=== PATIENT | female | born 1955 | race Caucasian/White ===

== ENCOUNTER 2020-05-07 14:10 | Outpatient (CLI) | payer MEDICARE, BC, SELFPAY ==
--- NOTE | 2020-05-07 14:24 | MM_ITS ---
WS: [id number] BILATERAL DIGITAL SCREENING MAMMOGRAPHY WITH CAD CLINICAL INFORMATION: SCREENING HISTORY: Screening mammogram. No current complaints. COMPARISON: April 17, 2019 TECHNIQUE: Bilateral CC and MLO views. FINDINGS: Bilateral breast implants Scattered fibroglandular densities bilaterally. No suspicious focal mass, asymmetry, calcifications, or architectural distortion. No evidence of malignancy. MM/[place] [id number] IMPRESSION: BI-RADS: 2-Benign FOLLOW UP: 1 Year Follow-up Recommend return to annual screening mammography.
--- NOTE | 2020-05-07 14:58 | XR_ITS ---
WS: [id number] Bone mineral density performed on a Elevate HR, 05/07/2020 Clinical data: POST MENOPAUSAL Findings: The first 4 lumbar vertebral bodies demonstrated the bone mineral density of 1.104 g/cm2 for a young adult T score of -0.6. Measurement of the left hip reveals a bone mineral density of 0.779 g/cm2 with a young adult T score of -1.8. Measurement of the right hip reveals the bone mineral density of 0.766 g/cm2 for young adult T score of -1.9. XR/XR DEXA axial skeleton* [id number] Impression: 1. Normal bone mineral density of the lumbar spine. 2. Osteopenia of both hips.
== END 2020-05-07 14:11 | disposition home or self-care (01) ==
PROVIDERS: PCP Family Medicine; Visit Provider Family Medicine
DX: Z12.31 Encounter for screening mammogram for malignant neoplasm of breast (principal); Z78.0 Asymptomatic menopausal state; M85.88 Other specified disorders of bone density and structure, other site
CPT/HCPCS: 77067; 77080

== ENCOUNTER 2021-10-09 18:18 | Emergency (ER) | payer MEDICARE, BC, SELFPAY ==
[2021-10-09 19:20] VITALS: BP 126/83; PULSE 67; RESP 18; TEMP 36.2; O2SAT 96; BMI 23.5
--- NOTE | 2021-10-09 21:21 | ED_ITS ---
HPI - General Adult General: Chief complaint: Eye Problems Stated complaint: [place] Vision\Jaws Hurt Time Seen by Provider: 10/09/21 20:52 History of Present Illness: HPI narrative: Patient is a 66-year-old female comes to the ED with an episode of vision change and headache. Symptoms started while she was sitting watching some TV. Symptoms lasted for approximately 15 minutes and resolved before coming to the ED. she describes the vision change as seen some bright halo type rings around objects. When the vision symptoms started they were in both eyes right away and then as the vision symptoms went away at first resolved on right eye and then the left. Headache at the time was described as very mild. She currently has no headache here in the ED. Denies any neurological symptoms such as numbness/tingling to face, extremities. Denies any weakness to 1 side of her body. Patient denies any other symptoms. She does not have any history of past strokes. Associated symptoms: Reports headache(s) (Mild headache resolved upon arrival to ED); Deny chest pain, dyspnea, nausea, rash, palpitations or vomiting Review of Systems Const: Denies: fever(s), chills or fatigue Eyes: Reports: change in vision (Bilateral-resolved upon arrival to the ED.); Denies: eye discomfort ENMT: Denies: throat pain, odynophagia, nasal discharge or nasal congestion Card: Denies: chest pain, palpitations, edema, swelling of feet/ankles, dyspnea on exertion or orthopnea Resp: Denies: dyspnea, productive cough or non-productive cough GI: Denies: abdominal pain, nausea, vomiting, diarrhea, constipation or hematochezia : Denies: flank pain, dysuria or hematuria Musc: Denies: neck pain, back pain or extremity swelling Skin/Breast: Denies: rash or new lesions Neuro: Reports: headache(s) (Mild headache resolved upon arrival to ED); Denies: numbness in extremities or weakness in extremities PFS ED PFSH: Medical History Anxiety Arrhythmia Premature ventricular contractions History of nonmelanoma skin cancer 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) Surgical History S/P right breast implant Family History Father Brain malignant neoplasm Palpitations Family/Other Cancer Social History Smoking and tobacco status: former smoker Alcohol intake: current Alcohol intake frequency: holidays/special occasions only Alcohol type: wine Lives independently: Yes Marital status: / service: No Current occupational status: employed Current occupation: [employer] Current gender identity: Female Sophia/Congregation: Other Physical Exam Const: COMMON NORMALS: no acute distress, patient oriented x3, healthy appearing and alert GENERAL APPEARANCE: cooperative and comfortable HENMT: COMMON NORMALS: normocephalic HEAD & SCALP: normocephalic MOUTH: Normal oral and palatal mucosa present THROAT: posterior oropharynx normal and uvula midline Eye: COMMON NORMALS: Equal, round and reactive pupils present, EOMs intact bilaterally, conjunctivae normal and normal visual kirk by confrontation CONJUNCTIVA: Yes conjunctivae normal PUPIL: Yes Equal, round and reactive pupils present Neck/C-Spine: COMMON NORMALS: supple GENERAL: Yes normal visual inspection Resp: COMMON NORMALS: normal respiratory effort, No retractions, No use of accessory muscles and clear to auscultation bilaterally AUSCULTATION: clear to auscultation bilaterally Cardio: COMMON NORMALS: regular rate, regular rhythm, S1 normal heart sound present, S2 normal heart sound present, No gallops present (Cardio), No clicks present (Cardio), No murmurs present (Cardio) and Peripheral pulses 2+ throughout RATE: regular rate RHYTHM: regular rhythm HEART SOUNDS: S1 normal heart sound present and S2 normal heart sound present PERIPHERAL PULSES: Peripheral pulses 2+ throughout GI: COMMON NORMALS: Normal to inspection, nondistended, normoactive bowel sounds present, Soft to palpation, non-tender and no masses PALPATION: Yes Soft to palpation : COMMON NORMALS: Yes no CVA tenderness BLADDER/KIDNEY EXAM: Yes no CVA tenderness Back/Pelvis: COMMON NORMALS: no CVA tenderness Extremity: COMMON NORMALS: normal to inspection and full ROM Neuro: COMMON NORMALS: patient oriented x3, CN's II-XII intact bilaterally, moves all extremities, no focal motor deficits and no sensory deficits noted SENSORIUM/ORIENTATION: Yes alert SENSORY EXAM: Yes extremities (intact) MOTOR EXAM: 5/5 motor strength present throughout Skin: GENERAL SKIN EXAM: dry skin Course Vital Signs: Vital signs: Vital Signs Temperature 97.2 F L 10/09/21 19:20 Pulse Rate 67 10/09/21 19:20 Respiratory Rate 18 10/09/21 22:56 Blood Pressure 126/83 10/09/21 19:20 Pulse Oximetry 96 10/09/21 19:20 MDM - General Adult MDM Narrative: Medical decision making narrative: Patient is a 66-year-old female comes to the ED with an episode of vision change and headache. Symptoms started while she was sitting watching some TV. Symptoms lasted for approximately 15 minutes and resolved before coming to the ED. she describes the vision change as seen some bright halo type rings around objects. Symptoms were completely resolved upon arrival to the ED. She was experiencing no symptoms here in the ED and felt at her normal baseline. Vitals are stable. Neuro exam showed no deficits and the rest of exam was benign. CT of head showed no acute findings. Patient was diagnosed with an episode of visual disturbance and discharged home. She was told to follow-up with her PCP in 7 to 10 days reevaluation. Return to ED precautions given. Patient was to agree with plan. Imaging Data^: CT Head: Attestation: I personally reviewed and interpreted this imaging study as follows: Radiologist's impression: [address] [address] [address] Scan Report Signed Patient: Dafne Alex Unit #: [id number] : 1955 Age/Sex: 66 / F ADM Date: 10/09/21 Loc: ER Room/Bed: Attending Dr: Ordering Provider/Ordering MD: Magnus Courtney Date of Service: 10/09/21 Procedure(s): CT head wo con* [id number] Accession Number(s): [id number] Report Number: [id number] PROCEDURE INFORMATION: Exam: CT Head Without Contrast Exam date and time: 10/09/2021 9:20 PM Age: 66 years old Clinical indication: Pain; Visual disturbance; Headache; Additional info: Episode of vision changes with headache TECHNIQUE: Imaging protocol: Computed tomography of the head without contrast. Radiation optimization: All CT scans at this facility use at least one of these dose optimization techniques: automated exposure control; mA and/or kV adjustment per patient size (includes targeted exams where dose is matched to clinical indication); or iterative reconstruction. COMPARISON: No relevant prior studies available. RADIATION DOSE METRICS: Total DLP (mGy-cm): 809.01 FINDINGS: Brain: Normal. No hemorrhage. Unremarkable white matter. No mass effect. Cerebral ventricles: No ventriculomegaly. Paranasal sinuses: Visualized sinuses are unremarkable. No fluid levels. Mastoid air cells: Visualized mastoid air cells are well aerated. Bones/joints: Unremarkable. No acute fracture. Soft tissues: Unremarkable. CT/CT head wo con* [id number] IMPRESSION: No acute intracranial abnormality. Dictated By: Massimo You DO Signed By: Massimo You DO Signed Date/Time: 10/09/212221 DD/ 19 Discharge Plan Discharge Patient Disposition: Home Clinical Impression: Episode of visual disturbance Condition: Stable Prescriptions: No Action No Known Home Medications RF: 0 Discharge Orders: Discharge ED (Routine); Ordered 10/09/21 Ordered By: Magnus Courtney Referrals: Will Eisenberg MD [Primary Care Provider] - Discharge Diet: Regular Discharge Activity: Resume usual activity Activity Restrictions/Additional Instructions: Follow-up with medical provider as directed in 7 to 10 days for reevaluation. Continue taking all home medications as previously prescribed. Return to the ER or your medical provider if condition worsens. Please read and understand discharge instructions. Thank you for choosing [facility] for your healthcare needs today. Please realize this is an emergency room and that we are providing you with a medical screening exam and this may not be complete and all inclusive of all the testing and or work up that you may need to determine your ailment or severity of your illness. It is very important that you follow up as instructed or that you return to the Emergency Department should you have concerns or if your condition changes or worsens in any way. Coding Level of Care Code ED [employer] for [employer] Exam Comprehensive
[2021-10-09 22:56] VITALS: RESP 18
== END 2021-10-09 22:58 | disposition home or self-care (01) ==
PROVIDERS: Emergency Provider Physician Assistant; PCP Family Medicine
DX: H53.9 Unspecified visual disturbance (principal); Z87.891 Personal history of nicotine dependence
CPT/HCPCS: 70450; 99283

== ENCOUNTER 2022-08-25 13:09 | Outpatient (CLI) | payer MEDICARE, BC, SELFPAY ==
--- NOTE | 2022-08-25 13:19 | MM_ITS ---
WS: [id number] BILATERAL 3D TOMOSYNTHESIS DIGITAL SCREENING MAMMOGRAPHY WITH CAD CLINICAL INFORMATION: SCREENING HISTORY: Screening mammogram. No current complaints. COMPARISON: May 07, 2020 TECHNIQUE: Bilateral CC and MLO views. FINDINGS: Bilateral breast implants revision since 2019. Scattered fibroglandular densities bilaterally. No suspicious focal mass, asymmetry, calcifications, or architectural distortion. No evidence of malignancy. A few incidental punctate calcifications. MM/[place] [id number] IMPRESSION: BI-RADS: 2-Benign FOLLOW UP: 1 Year Follow-up Recommend return to annual screening mammography.
== END 2022-08-25 13:10 | disposition home or self-care (01) ==
LOC: RAD 13:10
PROVIDERS: PCP Family Medicine; Visit Provider Family Medicine
DX: Z12.31 Encounter for screening mammogram for malignant neoplasm of breast (principal)
CPT/HCPCS: 77063; 77067

== ENCOUNTER → 2023-05-28 13:51 | Outpatient (BNVA) | payer MEDICARE, BC, SELFPAY | PROVIDERS: PCP Family Medicine; Visit Provider Dermatology | DX: L28.1 Prurigo nodularis (principal); L57.8 Other skin changes due to chronic exposure to nonionizing radiation; L81.4 Other melanin hyperpigmentation; D18.01 Hemangioma of skin and subcutaneous tissue; Z85.828 Personal history of other malignant neoplasm of skin; Z87.891 Personal history of nicotine dependence | CPT/HCPCS: 99213 ==

== ENCOUNTER 2023-12-13 13:25 | Outpatient (CLI) | payer MEDICARE, BC, SELFPAY ==
--- NOTE | 2023-12-13 13:30 | MM_ITS ---
WS: [id number] BILATERAL SCREENING DIGITAL BREAST MAMMOGRAPHY WITH SHANIQUE DISPLACEMENT VIEWS. CAD PERFORMED. HISTORY: SCREENING COMPARISON: 08/25/2022, 05/07/2020 Bilateral craniocaudal and mediolateral oblique views are performed with tomosynthesis and SM. Shanique displacement views in CC and MLO projection also performed. Breasts composition: There are scattered areas of fibroglandular density. Implants are intact. Small lymph nodes in the upper outer quadrant LEFT breast. No suspicious mass or calcification. IMPRESSION: MM/[place] [id number] BI-RADS: 2-Benign FOLLOW-UP: 1 Year Follow-up
== END 2023-12-13 13:26 | disposition home or self-care (01) ==
LOC: RAD 13:26
PROVIDERS: PCP Family Medicine; Visit Provider Nurse Practitioner Family
DX: Z12.31 Encounter for screening mammogram for malignant neoplasm of breast (principal); R92.323 Mammographic fibroglandular density, bilateral breasts
CPT/HCPCS: 17000; 77063; 77067; 99213

== ENCOUNTER → 2024-06-12 14:24 | Outpatient (BNVA) | payer MEDICARE, BC, SELFPAY | PROVIDERS: PCP Family Medicine; Visit Provider Nurse Practitioner Family | DX: L72.0 Epidermal cyst (principal); Q83.8 Other congenital malformations of breast; L82.1 Other seborrheic keratosis; D18.01 Hemangioma of skin and subcutaneous tissue | CPT/HCPCS: 17000; 99213 ==

== ENCOUNTER 2024-07-15 10:52 | Outpatient (CLI) | payer MEDICARE, BC, SELFPAY ==
--- NOTE | 2024-07-15 10:57 | XRR_ITS ---
PROCEDURE INFORMATION: Exam: XR Left Hand Exam date and time: 07/15/2024 11:15 AM Age: 68 years old Clinical indication: Pain; Bilateral; Patient HX: Fall onto hands x2 years, started bothering patient about a year ago, knots on hand; Additional info: R hand pain TECHNIQUE: Imaging protocol: Radiologic exam of the left hand. Views: 3 or more views. COMPARISON: No relevant prior studies available. FINDINGS: Bones/joints: Normal. Soft tissues: Normal. XR/XR hand LT min 3V* [id number] IMPRESSION: No acute findings.
--- NOTE | 2024-07-15 10:57 | XRR_ITS ---
PROCEDURE INFORMATION: Exam: XR Right Hand Exam date and time: 07/15/2024 11:15 AM Age: 68 years old Clinical indication: Pain; Bilateral; Patient HX: Fall onto hands x2 years, started bothering patient about a year ago, knots on hand; Additional info: R hand pain TECHNIQUE: Imaging protocol: Radiologic exam of the right hand. Views: 3 or more views. COMPARISON: No relevant prior studies available. FINDINGS: Bones/joints: Normal. Soft tissues: Normal. XR/XR hand RT min 3V* [id number] IMPRESSION: No acute findings.
== END 2024-07-15 10:53 | disposition home or self-care (01) ==
LOC: RAD 10:53
PROVIDERS: PCP Family Medicine; Visit Provider Nurse Practitioner Family
DX: M79.641 Pain in right hand (principal)
CPT/HCPCS: 73130

== ENCOUNTER 2024-08-21 09:50 | Outpatient (CLI) | payer MEDICARE, BC, SELFPAY ==
--- NOTE | 2024-08-21 09:54 | US_ITS ---
WS: [id number] ULTRASOUND BREAST LEFT TECHNIQUE: Ultrasound left breast focused area of concern. CLINICAL INFORMATION: L BREAST PAIN/IMPLANTS TENDER @ 8 OCLOCK AREA LEFT COMPARISON: None. FINDINGS: Ultrasound LEFT breast 8 o'clock position area of pain 2 cm from the nipple. In the area of concern, there is a small echogenic lesion measuring 3 x 3 x 3 mm which has a benign appearance most likely a small lipoma or fibroadenolipoma. Recommend 6-month follow-up to confirm stability considering palpab le nature. US/US breast LT limited* [id number] IMPRESSION: BI-RADS 3 probably benign Recommend 6-month ultrasound LEFT breast follow-up to confirm stability.
== END 2024-08-21 09:51 | disposition home or self-care (01) ==
LOC: RAD 09:51
PROVIDERS: PCP Family Medicine; Visit Provider Nurse Practitioner Family
DX: N63.24 Unspecified lump in the left breast, lower inner quadrant (principal); N64.4 Mastodynia
CPT/HCPCS: 76642

== ENCOUNTER 2024-10-28 13:22 | Outpatient (CLI) | payer MEDICARE, BC, SELFPAY ==
--- NOTE | 2024-10-28 13:25 | USR_ITS ---
PROCEDURE INFORMATION: Exam: US Pelvis Transabdominal, Complete, and US Pelvis Transvaginal, Non-obstetric Exam date and time: 10/28/2024 1:56 PM Age: 69 years old Clinical indication: Pelvic pain TECHNIQUE: Imaging protocol: Real-time complete transabdominal and transvaginal pelvic ultrasound (non-obstetric) with image documentation. Transvaginal imaging was used for better evaluation of the endometrium, adnexa, and/or cervix. COMPARISON: No relevant prior studies available. FINDINGS: Uterus: The uterus is anteverted. Uterine contours are normal. The endometrium is homogenous. Endometrial stripe thickness measures 4 mm. The uterus measures 4.4 x 2.3 x 1.7 cm for a volume of 9 cc. Right ovary/adnexa: The right ovary is not visible. There is no adnexal mass or cyst on the right. Left ovary/adnexa: The left ovary is not visible. There is no adnexal mass or cyst on the left. Intraperitoneal space: No pelvic free fluid. Urinary bladder: The urinary bladder is unremarkable. US/US pelv w/transvag [id number] IMPRESSION: 1. Unremarkable uterus. 2. Ovaries are not visible.
== END 2024-10-28 13:23 | disposition home or self-care (01) ==
LOC: RAD 13:23
PROVIDERS: PCP Family Medicine; Visit Provider Nurse Practitioner Family
DX: R10.2 Pelvic and perineal pain (principal)
CPT/HCPCS: 76830; 76856

== ENCOUNTER 2024-12-16 11:30 | Outpatient (CLI) | payer MEDICARE, BC, SELFPAY ==
--- NOTE | 2024-12-16 | MM_ITS ---
WS: [id number] BILATERAL 3D TOMOSYNTHESIS DIGITAL SCREENING MAMMOGRAPHY WITH CAD CLINICAL INFORMATION: ANNUAL SCREENING HISTORY: Screening mammogram. No current complaints. COMPARISON: 2023 TECHNIQUE: Bilateral CC and MLO views. FINDINGS: Stable bilateral breast implants. Scattered fibroglandular densities bilaterally. No suspicious focal mass, asymmetry, calcifications, or architectural distortion. No evidence of malignancy. MM/MM [facility] tomosynthesis [id number] IMPRESSION: DENSITY: There are scattered areas of fibroglandular density. BI-RADS: 2 - Benign. FOLLOW UP: 1 Year Follow-up Recommend return to annual screening mammography.
== END 2024-12-16 11:31 | disposition home or self-care (01) ==
PROVIDERS: PCP Family Medicine; Visit Provider Nurse Practitioner Family
DX: L91.8 Other hypertrophic disorders of the skin (principal); L82.1 Other seborrheic keratosis; D18.01 Hemangioma of skin and subcutaneous tissue; Z08 Encounter for follow-up examination after completed treatment for malignant neoplasm; Z85.828 Personal history of other malignant neoplasm of skin; L57.0 Actinic keratosis
CPT/HCPCS: 17000; 77063; 77067; 99213

== ENCOUNTER → 2025-05-28 09:58 | Outpatient (BNVA) | payer MEDICARE, BC, SELFPAY | PROVIDERS: PCP Family Medicine; Visit Provider Nurse Practitioner Family | DX: D18.01 Hemangioma of skin and subcutaneous tissue (principal); L57.8 Other skin changes due to chronic exposure to nonionizing radiation; X32.XXXA Exposure to sunlight, initial encounter; L57.0 Actinic keratosis; L81.4 Other melanin hyperpigmentation; Z08 Encounter for follow-up examination after completed treatment for malignant neoplasm; Z85.828 Personal history of other malignant neoplasm of skin | CPT/HCPCS: 17000; 99213 ==

== ENCOUNTER → 2025-06-23 11:23 | Outpatient (BNVA) | payer MEDICARE, BC, SELFPAY | PROVIDERS: PCP Family Medicine; Visit Provider Podiatrist Foot & Ankle Surgery | DX: M79.671 Pain in right foot (principal); M72.2 Plantar fascial fibromatosis | CPT/HCPCS: 73630; 99203 ==

== ENCOUNTER 2025-07-10 10:19 | Emergency (ER) | payer MEDICARE, BC, SELFPAY ==
[2025-07-10 10:37] VITALS: BP 106/69; PULSE 77; RESP 17; TEMP 36.8; O2SAT 99; BMI 25.1
--- NOTE | 2025-07-10 11:29 | XR_ITS ---
WS: [id number] XR hand RT min 3V* [id number] REASON FOR EXAM: fall FINDINGS: No acute fracture. Joint spaces of the right hand are intact and relatively well preserved. No radiopaque soft tissue foreign body. XR/XR hand RT min 3V* [id number] IMPRESSION: No acute bone or joint abnormality.
--- NOTE | 2025-07-10 11:29 | XR_ITS ---
WS: [id number] XR ribs RT mn 3V w CXR1V [id number] REASON FOR EXAM: fall FINDINGS: No right rib fracture. No acute abnormality within the right hemithorax. XR/XR ribs RT mn 3V w CXR1V [id number] IMPRESSION: No acute abnormality.
--- NOTE | 2025-07-10 11:29 | XR_ITS ---
WS: [id number] XR wrist RT min 3V* [id number] REASON FOR EXAM: fall FINDINGS: No acute fracture. Joint spaces of the right wrist are intact and well preserved. Normal carpal bone alignment. No radiopaque soft tissue foreign body. XR/XR wrist RT min 3V* [id number] IMPRESSION: No acute bone or joint abnormality.
--- NOTE | 2025-07-10 11:29 | XR_ITS ---
WS: [id number] XR knee RT 3V* [id number] REASON FOR EXAM: fall FINDINGS: No acute fracture. Tibial plateaus and patella intact. Joint spaces are intact with moderate osteoarthritis in the patellofemoral, medial, and lateral knee joint compartments. XR/XR knee RT 3V* [id number] IMPRESSION: No acute abnormality. Moderate osteoarthropathy.
--- NOTE | 2025-07-10 11:29 | W.ED.FALL ---
HPI - Fall General: Chief Complaint: Fall Stated Complaint: Fell Head Both knees R hand R upper ribs Pain Time Seen by Provider: 07/10/25 10:28 Source: patient Mode of arrival: ambulatory Limitations: no limitations History of Present Illness: Patient is a very nice 69-year-old female presents to ED today along with her significant other for evaluation of a fall. Patient states she fell yesterday after she tripped while wearing a pair of Birkenstocks. She states she injured her right wrist and hand as well as her right ribs. She is also having some anterior right knee pain. She has been ambulatory without difficulty or assistance since the fall. She denies striking her head or LOC. No neck or back pain. MD complaint: fall Onset (ago): day(s) Fall from: standing Fall witnessed: yes, by bystander Place fall occurred: other Loss of consciousness: None Prolonged down time: no Symptoms prior to fall: none Context: tripped/slipped Location of injury: chest Location of injury - extremities: Right: hand and knee Associated symptoms-after fall: Reports chest pain (R rib); Denies abdominal pain, difficulty walking, headache(s), hematuria, lightheadedness or neck pain Related Data Home Medications ?Medication ?Instructions ?Recorded ?Confirmed No Known Home Medications 05/16/21 06/23/25 Allergies Allergy/AdvReac Type Severity Reaction Status Date / Time No Known Allergies Allergy Verified 06/23/25 11:21 Review of Systems Card: Reports: chest pain (R rib); Denies: palpitations, lightheadedness, syncope or pre-syncope Resp: Denies: dyspnea or pain on inspiration GI: Denies: abdominal pain : Denies: flank pain or hematuria Musc: Reports: joint pain and joint swelling (R knee); Denies: neck pain, back pain or extremity pain Neuro: Denies: headache(s), numbness in extremities, weakness in extremities, sensory changes, difficulty walking or dizziness PFSH ED PFSH: Medical History Plantar fasciitis, right History of nonmelanoma skin cancer TMJ (dislocation of temporomandibular joint) Anxiety Arrhythmia Premature ventricular contractions Squamous cell carcinoma of leg Surgical History S/P right breast implant Family History Father Brain cancer Palpitations Family/Other Cancer Social History Smoking and tobacco/nicotine status: never used tobacco/nicotine Alcohol intake: current Alcohol intake frequency: holidays/special occasions only Alcohol type: wine Substance/Drug Use: never Lives independently: Yes Marital status: / service: No Current occupational status: employed Current occupation: [employer] Current gender identity: Female Sophia/Islam: Other Physical Exam Const: COMMON NORMALS: no acute distress, average body habitus, patient oriented x3, no limitations, healthy appearing, alert and well nourished GENERAL APPEARANCE: cooperative ORIENTATION/CONSCIOUSNESS: Yes awake, Yes oriented to person, Yes oriented to place and Yes oriented to time HENMT: COMMON NORMALS: normocephalic and atraumatic HEAD & SCALP: normal to inspection, normocephalic and atraumatic; no Kelly's sign, no hematoma and no raccoon eyes FACE & SINUS: normal facial exam Eye: GENERAL EYE: appearance normal, both eyes and all related structures Neck/C-Spine: COMMON NORMALS: full ROM GENERAL: Yes normal visual inspection CERVICAL SPINE: Yes cervical ROM normal, No pain with cervical ROM, No Cervical spine tenderness, No step off deformity and No Paracervical muscle tenderness Chest: COMMONS NORMALS: normal inspection of the chest OTHER: Mild discomfort right lateral lower ribs. No crepitus. Normal lung sounds. No RUQ abdominal pain Resp: COMMON NORMALS: normal respiratory effort and clear to auscultation bilaterally AUSCULTATION: clear to auscultation bilaterally Cardio: COMMON NORMALS: regular rate and regular rhythm RATE: regular rate RHYTHM: regular rhythm GI: COMMON NORMALS: Normal to inspection, nondistended, normoactive bowel sounds present, Soft to palpation, non-tender, No hepatosplenomegaly present and no masses INSPECTION: Yes normal to inspection and No abdominal wall ecchymosis AUSCULTATION: Yes normoactive bowel sounds PALPATION: Yes Soft to palpation and Yes No hepatosplenomegaly present : COMMON NORMALS: Yes no CVA tenderness BLADDER/KIDNEY EXAM: Yes no CVA tenderness Back/Pelvis: COMMON NORMALS: no CVA tenderness, thoracic and lumbar spine normal to inspection, no thoracic nor lumbar tenderness and thoraco-lumbar ROM normal Extremity: COMMON NORMALS: normal to inspection and capillary refill normal GENERAL: Yes normal exam except as noted RIGHT UPPER EXTREMITY: Yes wrist (TTP) Right wrist: Yes inspection (normal gross inspection) and Yes neurovascular exam (normal) and Yes hand & digits Right hand and digits: Yes palpation (TTP), Yes ROM exam (normal) and Yes neurovascular exam (normal) RIGHT LOWER EXTREMITY: Yes knee joint Right knee: Yes inspection (anterior edema), Yes ROM (limited due to pain) and Yes neurovascular exam (normal) Neuro: DOROTHY COMA SCALE: document GCS findings [place] coma scale eye opening: Spontaneous Dorothy coma scale verbal response: Orientated [place] coma scale motor response: Obey commands [place] coma scale total score: 15 COMMON NORMALS: patient oriented x3, CN's II-XII intact bilaterally, moves all extremities, no focal motor deficits, no sensory deficits noted and gait normal SENSORIUM/ORIENTATION: Yes alert, Yes oriented to person, Yes oriented to place and Yes oriented to time SPEECH: speech normal GAIT: Yes Normal gait present Skin: COMMON NORMALS: no rashes or lesions noted GENERAL SKIN EXAM: no rashes or lesions noted TRAUMA: no lacerations or abrasions Course Vital Signs: Vital signs: Vital Signs Temperature 98.3 F 07/10/25 10:37 Pulse Rate 65 07/10/25 12:04 Respiratory Rate 17 07/10/25 10:37 Blood Pressure 102/66 07/10/25 12:04 Pulse Oximetry 97 07/10/25 12:04 Oxygen Delivery Me thod Room Air 07/10/25 12:04 MDM - Fall Medical Decision Making XRs of the right ribs, right hand/wrist, and right knee obtained showing no acute fractures. Patient will be treated conservatively with recommendation to follow-up with primary care if symptoms are not improving. Return ED precautions discussed. Medical Records I reviewed the patient's medical records. Lab Data Radiology Impressions Hand X-Ray 07/10/25 11:29 IMPRESSION: No acute bone or joint abnormality. Knee X-Ray 07/10/25 11:29 IMPRESSION: No acute abnormality. Moderate osteoarthropathy. Ribs X-Ray 07/10/25 11:29 IMPRESSION: No acute abnormality. Wrist X-Ray 07/10/25 11:29 IMPRESSION: No acute bone or joint abnormality. All radiology interpretation(s) finalized by discharge Discharge Plan Discharge Patient Disposition: Home Clinical Impression: Fall on same level from tripping Contusion of rib on right side Qualifiers: Encounter type: initial encounter Qualified Code(s): S29.8XXA - Other specified injuries of thorax, initial encounter Right wrist sprain Qualifiers: Encounter type: initial encounter Wrist sprain location: unspecified location Qualified Code(s): S63.501A - Unspecified sprain of right wrist, initial encounter Contusion of right knee Qualifiers: Encounter type: initial encounter Qualified Code(s): S80.01XA - Contusion of right knee, initial encounter Condition: Stable Prescriptions: No Action No Known Home Medications Discharge Orders: Discharge ED (Routine); Ordered 07/10/25 Ordered By: Jennie Martinez Referrals: Will Eisenberg MD [Primary Care Provider, [facility]] Patient Instructions: Patient Portal & Ronal Instructions Activity Restrictions/Additional Instructions: As we discussed, you can treat discomfort conservatively with [id number] Tylenol and/or Motrin, ice, heat, and time. Please follow-up with primary care in a week or so if symptoms or not improving. You may return to the emergency department for any worsening pain or any discomforts that were not addressed on today's visit. I hope you begin to feel better soon. 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
[2025-07-10 12:04] VITALS: BP 102/66; PULSE 65; O2SAT 97
[2025-07-10 12:31] VITALS: BP 102/66; PULSE 68; O2SAT 98
== END 2025-07-10 12:36 | disposition home or self-care (01) ==
PROVIDERS: Emergency Provider Physician Assistant; PCP Family Medicine
DX: S20.211A Contusion of right front wall of thorax, initial encounter (principal); S63.501A Unspecified sprain of right wrist, initial encounter; S80.01XA Contusion of right knee, initial encounter; W01.0XXA Fall on same level from slipping, tripping and stumbling without subsequent striking against object, initial encounter; Z85.828 Personal history of other malignant neoplasm of skin
CPT/HCPCS: 71101; 73110; 73130; 73562; 99284

== ENCOUNTER → 2025-07-22 10:55 | Outpatient (BNVA) | payer MEDICARE, BC, SELFPAY | PROVIDERS: PCP Family Medicine; Visit Provider Podiatrist Foot & Ankle Surgery | DX: M72.2 Plantar fascial fibromatosis (principal) | CPT/HCPCS: 99213 ==